=== PATIENT | female | born 1960 | race Caucasian/White ===

== ENCOUNTER 2021-05-20 07:21 | Day surgery (SDC) | payer OTHER ==
[2021-05-20] MEDS ORDERED: Sodium Chloride 0.9% 1,000 ML IV SCH (08:15)
[2021-05-20] MEDS ORDERED: fentaNYL 100 MCG/2 ML SDV ONE (09:09)
[2021-05-20] MEDS ORDERED: Midazolam 1 MG/ML 2 ML SDV ONE (09:09)
[2021-05-20] MEDS ORDERED: Propofol 200 MG/20 ML SDV ONE (09:09)
== END 2021-05-20 11:25 | disposition home or self-care (01) ==
LOC: JP.SDS 07:21
PROVIDERS: ATTEND Surgery
DX: Z12.11 Encounter for screening for malignant neoplasm of colon (principal); E03.9 Hypothyroidism, unspecified
CPT/HCPCS: 45378; J2250; J2704; J3010; J7030